=== PATIENT | female | born 1935 | race Caucasian/White ===

== ENCOUNTER 2017-01-14 14:41 | Emergency (ER) | payer MEDICARE, MEDICAID ==
[~2017-01-14] VITALS: Ht 157.5 cm; Wt 65.0 kg
[~2017-01-14 14:41] MED LIST: ACET325T45 PO; ADV25050 INH; ATOR40TA68 PO; COMBIG5 BOTH EYES; DIPH50VI12 IV; Digoxin PO; ENOX30DI2 SC; ERGO500014 PO; FLUO10CA17 PO; FURO-110 PO; HYDR-906 PO; LEVO100T87 PO; LORA0.5T PO; MAGN400O4 PO; METH10TA2 PO; METO-335 PO; PANT40TA4 PO; POTA20TA96 PO; RANI150C11 PO; TIOT18CA IH; TIOT18CA INH; Vancomycin Hcl XX; WARF1TAB47 PO; ZOF4I IV; [UNRECOGNIZED DRUG - CODE] IM; [UNRECOGNIZED DRUG - CODE] IRR; [UNRECOGNIZED DRUG - CODE] IV
[2017-01-14 14:43] VITALS: Ht 157.5 cm; Wt 65.0 kg
[2017-01-14] MEDS ORDERED: SOD CHLORIDE 0.9% 500 ML IV STA (15:03)
[2017-01-14] MEDS ORDERED: FAMOTIDINE 20 MG INJ IV STA (15:03)
[2017-01-14] MEDS ORDERED: ONDANSETRON 4 MG INJ IV STA (15:03)
[2017-01-14] MEDS ORDERED: morphine 4 MG/ML VIAL IV STA (15:49)
[2017-01-14 16:06] LABS: BASOPHILS % 0.3 % (0.0-2.0); EOSINOPHILS % 0.3 % (0.0-7.0); HEMATOCRIT 34.8 % (37.0-47.0); HEMOGLOBIN 11.1 g/dl (12.0-16.0); LYMPHOCYTES # 0.9 10^3/ul (0.8-2.9); LYMPHOCYTES % 8.6 % (15.0-51.0); MEAN CORPUSCULAR HEMOGLOBIN 30.4 pg (29.0-33.0); MEAN CORPUSCULAR HGB CONC 31.9 g/dl (32.0-37.0); MEAN CORPUSCULAR VOLUME 95.3 fl (82.0-101.0); MEAN PLATELET VOLUME 11.4 fl (7.4-10.4); MONOCYTE # 0.5 10^3/ul (0.3-0.9); MONOCYTES % 4.3 % (0.0-11.0); NEUTROPHIL # 9.1 10^3/ul (1.6-7.5); PLATELET COUNT 244 10^3/UL (140-415); RED BLOOD COUNT 3.65 10^6/ul (4.20-5.40); RED CELL DISTRIBUTION WIDTH 16.6 % (11.5-14.5); WHITE BLOOD COUNT 10.6 10^3/ul (4.8-10.8)
--- NOTE | 2017-01-14 16:17 | RADRPT ---
PROCEDURE: Chest 1 views. CLINICAL INDICATION: Shortness of breath. Abdominal pain. TECHNIQUE: AP views of the chest was obtained. COMPARISON: November 23, 2014 FINDINGS: The heart is large. The lung apices are partially obscured by the patient's overlying chin. Right-si ded dual chamber pacemaker has its leads over the heart. Central pulmonary vascular congestion and i nterstitial prominence is seen in both lungs. Perihilar infiltrates are identified in the left upper lobe. Right lower lung infiltrates, combined small to moderate pleural effusion identified. Retroca rdiac opacity is noted. The lungs are hypoinflated. Left-sided chest port has its tip in the expect ed location of the proximal superior vena cava. The osseous structures appear grossly intact. IMPRESSION: Cardiomegaly . Limited exam with the lung apices partially obscured by the patient's overlying chin. Repeat exam wi th the chin elevated can be considered. Central pulmonary vascular congestion and interstitial prominence in both lungs. Perihilar infiltrates in the left upper lobe. Right mid and lower lung infiltrates, combined with small to moderate pleural effusion. Retrocardiac opacity that may reflect left lower lobe atelectasis or infiltrate combined with small pleural effusion. RPTAT: AA .Richard Stone MD, Date Time Electronically viewed and signed by .Richard Stone MD, on 01/14/2017 16:16 .P/
[2017-01-14] MEDS ORDERED: AMIN30LI PO (16:22)
[2017-01-14] MEDS ORDERED: HYDR-906 PO (16:23)
[2017-01-14] MEDS ORDERED: LATA2.5D9 RIGHT EYE (16:25)
[2017-01-14] MEDS ORDERED: MONT10TA24 PO (16:25)
[2017-01-14] MEDS ORDERED: BRIM15DR2 BOTH EYES (16:25)
[2017-01-14] MEDS ORDERED: OLAN5TAB5 PO (16:26)
[2017-01-14] MEDS ORDERED: TEMA15CA6 PO (16:26)
[2017-01-14] MEDS ORDERED: IPRA3AMP INHALATION (16:27)
[2017-01-14] MEDS ORDERED: ALPR0.5T6 PO (16:27)
[2017-01-14] MEDS ORDERED: MULTI PO (16:31)
[2017-01-14] MEDS ORDERED: LEVO125T75 PO (16:31)
[2017-01-14] MEDS ORDERED: ATOR10TA65 PO (16:32)
[2017-01-14] MEDS ORDERED: TIOT18CA INHALATION (16:32)
[2017-01-14] MEDS ORDERED: ESCI5TAB PO (16:33)
[2017-01-14] MEDS ORDERED: DEXT15DR4 OP (16:34)
[2017-01-14] MEDS ORDERED: RIVA20TA PO (16:34)
[2017-01-14] MEDS ORDERED: DIGO125T6 PO (16:35)
--- NOTE | 2017-01-14 17:05 | RADRPT ---
PROCEDURE: CT abdomen and pelvis without contrast. CLINICAL INDICATION: Abdominal Pain TECHNIQUE: CT scan of the abdomen and pelvis without contrast was performed and is reconstructed a t 2.5 mm contiguous axial intervals from the dome of the diaphragm to the inferior pubic rami.. The patient was scanned without intravenous contrast. Sagittal and coronal reformatted images were obt ained from the axial source images. The calculated radiation dose measures 1168 mGy centimeters. The CTDI measures 21 mGy. Individualized dose optimization technique was used for the performance of this exam. This included 1. Automated exposure control. 2. Adjustment of the mA and / or kV according to the patient's size. 3. Use of iterative reconstructed technique. COMPARISON: None. FINDINGS: The lung bases are clear of any infiltrate or nodule. No effusion is seen. Calcified granulomas see n in the left lower lobe. Pacemaker wires are present in the heart. The liver is of normal size, contour and attenuation with no mass . There is mild to moderate intra and extrahepatic bile duct dilatation with stones present in the distal common bile duct. . Gallblad guzman is distended with stones. No splenic, adrenal or pancreatic abnormalities present. Kidneys are of normal size and contour. No hydronephrosis or masses seen. 7 mm nonobstructing ston e is present in the lower pole of the right kidney. Ureters are of normal course and caliber with no stone. No bladder mass or stone is present. Uterus is been removed. Noted is a 4.2 cm cystic mass of the left ovary.. There is no aneurysm. There are extensive vascular calcifications. No adenopathy is present. No bowel mass or obstruction is present. Patient is status post partial left hemicolectomy with H artmann's pouch and a lower pelvic colostomy. A few scattered diverticula are present. The appendix is normal. No phlegmon, ascites or pneumoperitoneum is visualized. Patient is status post left hip replacement. 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 Postsurgi rashi changes are seen in the left groin suggestive of vascular bypass. There is a chronic compression fracture of L2, L3 and L4. IMPRESSION: Intra and extrahepatic bile duct dilatation with distended gallbladder containing stones. Choledocho lithiasis. Consider ultrasound for further evaluation. 7 mm nonobstructing right renal calculus. Bilateral renal cysts. Post hysterectomy. 4.2 cm cystic mass left ovary. Correlation with ultrasound is suggested. Status post partial left hemicolectomy with left lower quadrant colostomy. Status post left total hip replacement. Multiple compression fractures lumbar spine. Diverticulosis. .Daniel Mack MD, Date Time Electronically viewed and signed by .Daniel Mack MD, on 01/14/2017 17:05 .A/
[2017-01-14 17:59] LABS: TROPONIN-I < 0.012 ng/ml (0.00-0.12)
[2017-01-14 18:00] LABS: ALANINE AMINOTRANSFERASE 321 IU/L (13-69); ALBUMIN/GLOBULIN RATIO 0.88; ALKALINE PHOSPHATASE 331 IU/L (42-121); ANION GAP 15 (8-16); ASPARTATE AMINO TRANSFERASE 430 IU/L (15-46); BILIRUBIN,INDIRECT 0.5 mg/dl (0-1.1); BILIRUBIN,TOTAL 0.8 mg/dl (0.2-1.3); BLOOD UREA NITROGEN 20 mg/dl (7-20); CALCIUM 9.3 mg/dl (8.4-10.2); CARBON DIOXIDE 27 mmol/L (21-31); CHLORIDE 104 mmol/L (97-110); CREATININE 0.93 mg/dl (0.44-1.00); GLUCOSE 161 mg/dl (70-220); POTASSIUM 4.4 mmol/L (3.5-5.1); SODIUM 142 mmol/L (135-144); TOTAL PROTEIN 8.5 g/dl (6.1-8.1)
--- NOTE | 2017-01-14 18:21 | RADRPT ---
PROCEDURE: US Abdomen (right upper quadrant). CLINICAL INDICATION: Right upper quadrant abdomen pain. TECHNIQUE: Multiple real-time longitudinal and transverse images of the right upper quadrant of th e abdomen were acquired utilizing a curved array transducer. Images were reviewed on a high-resoluti on PACS workstation. COMPARISON: None FINDINGS: The liver is normal in size and normal in echogenicity. There is no focal hepatic lesion. Color Doppler and pulsed Doppler sonography demonstrate normal a ntegrade flow in the portal vein. Gallstones are present in the gallbladder. There is no gallbladder wall thickening and there is no f luid around the gallbladder. The bile ducts are normal with the common bile duct measuring 4.3 mm in diameter. The visualized portions of the pancreas are unremarkable with obscuration of the tail of the pancrea s. No free fluid is present. The right kidney measures 11.5 x 3.9 x 6.5 cm. There is normal echogenicity of the right kidney. There is no perinephric fluid collection. No hydronephrosis, mass, or calculus is seen. IMPRESSION: 1. Gallstones in the gallbladder. No evidence of cholecystitis. 2. Otherwise unremarkable right upper quadrant abdomen ultrasound. RPTAT: QQ .Drew Calix MD, Date Time Electronically viewed and signed by .Drew Calix MD, on 01/14/2017 18:21 .R/
[2017-01-14] MEDS ORDERED: ACETAMINOPHEN 325 MG TAB PO PRN (19:00)
[2017-01-14] MEDS ORDERED: ONDANSETRON 4 MG INJ IV PRN (19:00)
--- NOTE | 2017-01-14 19:44 | ERD ---
ER Documentation Chief Complaint Chief Complaint Sent from clinic for eval abdominal pain HPI This is a 81-year-old female with a history of chronic skin ulcer, hypertension who presents to the emergency room for evaluation of abdominal pain. The patient has had abdominal pain for the past 2 days and localizes the abdominal pain to the right portion of the abdomen. She does state that she has mild nausea however no vomiting. She came to the emergency room today for evaluation of her symptoms. The patient describes her pain as an achy pain with mild radiation to her back at times. ROS All systems reviewed and are negative except as per history of present illness. Medications Home Meds Reported Medications Digoxin* (Lanoxin*) 0.125 Mg Tablet, 0.125 MG PO DAILY, TAB HOLD FOR APICAL PULSE<60 01/14/17 Dextran 70/Hypromellose (Artificial Tears Eye Drops) 15 Ml Drops, 1 DROP OP Q8, BOTTLE 01/14/17 Rivaroxaban* (Xarelto*) 20 Mg Tablet, 20 MG PO WITH DINNER, TAB 01/14/17 Escitalopram Oxalate* (Lexapro*) 5 Mg Tablet, 2.5 MG PO DAILY, #30 TAB 01/14/17 Atorvastatin Calcium (Atorvastatin Calcium) 10 Mg Tablet, 10 MG PO QHS, #30 TAB 01/14/17 Tiotropium Wilburn* (Spiriva*) 18 Mcg Cap.w.dev, 1 CAP INHALATION DAILY, #30 CAP 01/14/17 Multivitamins* (Theragran*) 1 Tab Tab, 1 TAB PO DAILY, TAB 01/14/17 Levothyroxine Sodium* (Levothyroxine Sodium*) 125 Mcg Tablet, 125 MCG PO BEFORE BREAKFAST, #30 TAB 01/14/17 Alprazolam* (Alprazolam*) 0.5 Mg Tablet, 0.5 MG PO Q12 Y for ANXIETY, TAB 01/14/17 Ipratropium-Albuterol (Ipratropium-Albuterol) 0.5-3 Mg/3 Ml Ampul.neb, 3 ML INHALATION Q6 Y for WHEEZING AND SOB, #30 VIAL 01/14/17 Olanzapine* (Zyprexa*) 5 Mg Tablet, 5 MG PO QHS, #30 TAB 01/14/17 Temazepam* (Restoril*) 15 Mg Capsule, 15 MG PO HS Y for INSOMNIA, CAP 01/14/17 Latanoprost (Xalatan) 2.5 Ml Drops, 1 DROP RIGHT EYE QHS, #1 BOTTLE 01/14/17 Montelukast Sodium* (Montelukast Sodium*) 10 Mg Tablet, 10 MG PO QHS, #30 TAB 01/14/17 Brimonidine Tartrate* (Alphagan P*) 0.1%-15 Ml Opht Drops, 1 DROP BOTH EYES Q8, #1 EA 01/14/17 Hydrocodone/Acetaminophen (Sagamore 5-325 Tablet) 1 Each Tablet, 1 EACH PO BID Y for PAIN, TAB 01/14/17 Amino Acids/Protein Hydrolys (PRO-STAT LIQUID) 30 Ml Liquid.pkt, 30 ML PO BID 01/14/17 Salmeterol Xinaf/Fluticasone* (Advair*) 250-50 Diskus Inhaler, 1 INH INH BID, INH 11/22/14 Acetaminophen* (Acetaminophen*) 325 Mg Tablet, 650 MG PO Q8 Y for PAIN AND OR ELEVATED TEMP, TAB 11/22/14 Discontinued Reported Medications Warfarin Sodium* (Coumadin*) 1 Mg Tablet, 1 MG PO DAILY, TAB 11/22/14 Tiotropium Wilburn* (Spiriva*) 18 Mcg Cap.w.dev, 1 INH IH DAILY, EA 11/22/14 Ranitidine Hcl (Ranitidine Hcl) 150 Mg Capsule, 150 MG PO BID, CAP 11/22/14 Ondansetron Hcl* (Zofran*) 2 Mg/Ml Soln, 4 MG IV Q6H Y for NAUSEA AND OR VOMITING, VIAL 11/22/14 Morphine Sulfate (Morphine Sulfate) 5 Mg/Ml Soln, 5 MG IM Q4 Y for PAIN LEVEL 8- 10, EA 11/22/14 Metoprolol Succinate* (Toprol XL*) 25 Mg Tab.sr.24h, 25 MG PO BID, TAB 11/22/14 Magnesium Hydroxide* (Milk Of Magnesia*) 400 Mg/5 Ml Oral.susp, 30 ML PO DAILY Y for CONSTIPATION, ML 11/22/14 Imipenem/Cilastatin Sodium (Primaxin 500 Mg Vial) 500 Mg/Vial Vial.port, 500 MG IV Q12 11/22/14 Hydrocodone Bit-Acetaminophen (Sagamore) 5-325 Mg Tablet, 1 TAB PO Q6 Y for PAIN, TAB 11/22/14 Diphenhydramine* Inj (Diphenhydramine* Inj) 50 Mg/Ml Vial, 25 MG IV Q12 Y for PRURITUS, VIAL 11/22/14 Acetic acid* (Acetic acid*) 1,000 Ml Irrig.soln, 1000 ML IRR DAILY, BOTTLE 11/22/14 Fluoxetine Hcl* (Fluoxetine Hcl*) 10 Mg Capsule, 30 MG PO DAILY, CAP 11/13/14 Potassium Chloride* (Potassium Chloride*) 20 Meq Tablet.er, 20 MEQ PO BID, TAB.SA 11/13/14 Lorazepam* (Lorazepam*) 0.5 Mg Tablet, 0.5 MG PO TID Y for ANXIETY, TAB 11/13/14 Levothyroxine Sodium* (Levothyroxine Sodium*) 100 Mcg Tablet, 100 MCG PO AC BREAKFAST, TAB 11/13/14 Furosemide* (Lasix*) 20 Mg Tablet, 20 MG PO DAILY, TAB 11/13/14 Ergocalciferol* (Drisdol* (Vitamin D2)) 50,000 Unit Capsule, 81080 UNIT PO ON SUNDAYS, CAP 11/13/14 Atorvastatin* (Atorvastatin*) 40 Mg Tablet, 40 MG PO HS, TAB 11/13/14 Methadone Hcl* (Methadone*) 10 Mg Tab, 50 MG PO DAILY, TAB 11/13/14 Discontinued Scripts Pantoprazole* (Pantoprazole*) 40 Mg Tabec, 40 MG PO DAILY@06 for 30 Days Prov:THEO PAYNE MD 05/30/15 Salmeterol Xinaf/Fluticasone* (Advair*) 1 Inh Inha, 1 INH INH BID for 30 Days Prov:THEO PAYNE MD 05/30/15 Tiotropium Wilburn* (Spiriva*) 1 Inh Inha, 1 INH INH QHS for 30 Days Prov:THEO PAYNE MD 05/30/15 [Digoxin] 0.25 MG TAB No Conflict Check, 0.25 MG PO DAILY@13, TAB Prov:THEO PAYNE MD 05/30/15 Enoxaparin Sodium* (Enoxaparin Sodium*) 30 Mg/0.3 Ml Soln, 30 MG SC DAILY for 14 Days Prov:THEO PAYNE MD 05/30/15 [Vancomycin Hcl] 1 EA EACH No Conflict Check, 1 EA XX NOTE for 10 Days, EACH Prov:THEO PAYNE MD 05/30/15 Brimonidine/Timolol* (Combigan*) 1 Drop Drops, 1 DROP BOTH EYES BID for 30 Days , BOTTLE Prov:THEO PAYNE MD 05/30/15 Ergocalciferol* (Drisdol* (Vitamin D2)) 50,000 Unit Cap, 18853 UNIT PO Mello@09 for 30 Days, CAP Prov:THEO PAYNE MD 05/30/15 Allergies Allergies: Coded Allergies: clindamycin (Verified Allergy, Mild, RASH, 09/29/13) ceftriaxone (Verified Allergy, Unknown, itch, 11/14/14) ciprofloxacin (Verified Allergy, Unknown, 09/29/13) hydromorphone HCl (Verified Allergy, Unknown, 09/29/13) levofloxacin (Verified Allergy, Unknown, 09/29/13) PMhx/Soc History of Surgery: Yes (colostomy) Anesthesia Reaction: No Hx Neurological Disorder: No Hx Respiratory Disorders: Yes (asthma, COPOD) Hx Cardiac Disorders: Yes (AFIB, HTN) Hx Psychiatric Problems: Yes (depression) Hx Miscellaneous Medical Probl: Yes (B LE CHRONIC STASIS ULCERS,R EYE GLAUCOMA, L THR, PACEMAKER) Hx Alcohol Use: No Hx Substance Use: No Hx Tobacco Use: No Smoking Status: Never smoker Physical Exam Vitals Vital Signs Date Time Temp Pulse Resp B/P Pulse Ox O2 Delivery O2 Flow Rate FiO2 01/14/17 17:48 60 18 132/67 98 Room Air 01/14/17 14:43 98.1 60 20 144/64 99 Physical Exam INITIAL VITAL SIGNS: Reviewed by me GENERAL: The patient is well developed and appropriate for usual state of health in no apparent distress HEENT: Pupils equal, round, and reactive to light. EOMI. There is no scleral icterus. NECK: C-spine is soft and supple, there is no meningismus. There is no cervical lymphadenopathy. LUNGS: Clear to auscultation bilaterally. There are no rales, wheezes or rhonchi. HEART: Regular rate and rhythm, no murmurs, clicks, rubs or gallops. ABDOMEN: Positive Cortés sign, otherwise soft, non-tender, non-distended. There are bowel sounds in all four quadrants. No rebound or guarding. EXTREMITIES: There is no peripheral cyanosis or edema. No focal swelling or erythema. NEUROLOGICAL: The patient moves all four extremities with 5/5 strength. Cranial nerves II - XII are intact. Normal gait. Alert and oriented SKIN: There is no apparent rash or petechiae. HEME/LYMPHATIC: There is no evidence of excessive bruising or lymphedema. PSYCHIATRIC: The patient does not appear anxious or depressed. Result Diagram: 01/14/17 1545 01/14/17 1710 Results 24 hrs Laboratory Tests Test 01/14/17 15:45 01/14/17 17:10 White Blood Count 10.610^3/ul Red Blood Count 3.6510^6/ul Hemoglobin 11.1g/dl Hematocrit 34.8% Mean Corpuscular Volume 95.3fl Mean Corpuscular Hemoglobin 30.4pg Mean Corpuscular Hemoglobin Concent 31.9g/dl Red Cell Distribution Width 16.6% Platelet Count 21148^3/UL Mean Platelet Volume 11.4fl Neutrophils % 86.0% Lymphocytes % 8.6% Monocytes % 4.3% Eosinophils % 0.3% Basophils % 0.3% Nucleated Red Blood Cells % 0.0/100WBC Neutrophils # 9.110^3/ul Lymphocytes # 0.910^3/ul Monocytes # 0.510^3/ul Eosinophils # 0.010^3/ul Basophils # 0.010^3/ul Nucleated Red Blood Cells # 0.010^3/ul Sodium Level 142mmol/L Potassium Level 4.4mmol/L Chloride Level 104mmol/L Carbon Dioxide Level 27mmol/L Anion Gap 15 Blood Urea Nitrogen 20mg/dl Creatinine 0.93mg/dl Glucose Level 161mg/dl Calcium Level 9.3mg/dl Total Bilirubin 0.8mg/dl Direct Bilirubin 0.30mg/dl Indirect Bilirubin 0.5mg/dl Aspartate Amino Transf (AST/SGOT) 430IU/L Alanine Aminotransferase (ALT/SGPT) 321IU/L Alkaline Phosphatase 331IU/L Troponin I < 0.012ng/ml Total Protein 8.5g/dl Albumin 4.0g/dl Globulin 4.50g/dl Albumin/Globulin Ratio 0.88 Lipase 751U/L Current Medications Medications (Trade) Dose Ordered Sig/Amanda Route PRN Reason Start Time Stop Time Status Last Admin Dose Admin Sodium Chloride (NS) 500 ml @ 500 mls/hr Q1H STAT IV 01/14/17 15:03 01/14/17 16:02 DC 01/14/17 15:52 Ondansetron HCl (Zofran Inj) 4 mg ONCE STAT IV 01/14/17 15:03 01/14/17 15:04 DC 01/14/17 15:52 Famotidine (Pepcid Iv) 20 mg ONCE STAT IV 01/14/17 15:03 01/14/17 15:04 DC 01/14/17 15:52 Morphine Sulfate (morphine) 4 mg ONCE STAT IV 01/14/17 15:49 01/14/17 15:50 DC 01/14/17 16:00 Ondansetron HCl (Zofran Inj) 4 mg BRIDGE ORDER PRN IV NAUSEA AND/OR VOMITING 01/14/17 19:00 01/15/17 18:59 Acetaminophen (Tylenol Tab) 650 mg ER BRIDGE PRN PO MILD PAIN/FEVER 01/14/17 19:00 01/15/17 18:59 Procedures/MDM Ultrasound gallbladder: 1. Gallstones in the gallbladder. No evidence of cholecystitis. 2. Otherwise unremarkable right upper quadrant abdomen ultrasound. CT abdomen pelvis without IV contrast:Intra and extrahepatic bile duct dilatation with distended gallbladder containing stones. Choledocholithiasis. Consider ultrasound for further evaluation. 7 mm nonobstructing right renal calculus. Bilateral renal cysts. Post hysterectomy. 4.2 cm cystic mass left ovary. Correlation with ultrasound is suggested. Status post partial left hemicolectomy with left lower quadrant colostomy. Status post left total hip replacement. Multiple compression fractures lumbar spine. Chest X-ray 1V Interpreted by me: Soft Tissue: No acute abnormalities Bones: No acute abnormalities Mediastinum/Cardiac Silhouette/Lungs: [No acute abnormalities] This 81-year-old female presents to the ER for evaluation of abdominal pain. She had pain in the right upper quadrant and a positive Cortés's on my examination. This patient did undergo a CT of the abdomen and pelvis which shows choledocholithiasis with a gallstone in the distal common bile duct. Stent was obtained which does not show choledocholithiasis however CAT scan does demonstrate this. This patient does have a transaminitis. I did call this patient's primary care physician, Dr. Pham, and spoke to Dr. Briceño. He recommended Dr. Kellie meléndez for gastroenterology. I did call Dr. Kellie perez and spoke to the on-call physician, Dr. manley who states he does not have a ERCP privileges, and to call Dr. echols. I have paged this physician and I have not heard back. Dr. Briceño also wanted Dr. Esteban for general surgery however I spoke to Dr. Esteban he states that he is out of town. Given the fact that this patient will not be able to obtain a gastroenterology consult and we do not have any beef lugger avionics integration engineer this patient will be transferred to a higher level of care to obtain an ERCP given the fact her CAT scan does show choledocholithiasis and she does have transaminitis. This patient will be signed out to our oncoming physician for further disposition. We will notify Dr. Trejo that this patient will be transferred. Critical Care: Excluding all billable procedures Time: 33 minutes Treatments/Evaluations: Close monitoring and treatment of unstable vital signs, cardiorespiratory, and neurologic status, while maintaining tight balance of fluid, respiratory, and cardiac interventions multiple consultations , repeated bedside reevaluation, lab work evaluation, CT and ultrasound interpretation. Departure Diagnosis: Primary Impression: Choledocholithiasis Additional Impressions: Abdominal pain Transaminitis Condition: PAULINA Anderson DO Jan 14, 2017 19:44
[2017-01-15] MEDS ORDERED: DIPHENHYDRAMINE 50 MG INJ IM ONE
[2017-01-15] MEDS ORDERED: HALOPERIDOL 5 MG INJ IM ONE
[2017-01-15 03:30] VITALS: BP 92/58; PULSE 60; RESP 18; TEMP 98.7
--- NOTE | 2017-01-15 04:04 | EN ---
Date/Time of Note Date/Time of Note DATE: 01/15/17 TIME: 04:02 ER Progress Note Observation Note: Time: 4hours Family Hx: No Hypertension Evaluation: Multiple exams showed improving symptoms and no evidence of clinical deterioration I discussed the patient with Dr. Campos from [facility], who was made aware of the lab, the treatment, the patient condition. She accepted the patient at 4 AM QUINCY BERMUDEZ MD Jan 15, 2017 04:04
== END 2017-01-15 04:15 | disposition short-term general hospital (02) ==
LOC: E/R 14:41
DX: K80.50 Calculus of bile duct without cholangitis or cholecystitis without obstruction (principal); R74.0 Nonspecific elevation of levels of transaminase and lactic acid dehydrogenase [LDH]; I10 Essential (primary) hypertension; J44.9 Chronic obstructive pulmonary disease, unspecified; Z79.01 Long term (current) use of anticoagulants; Z95.0 Presence of cardiac pacemaker
CPT/HCPCS: 71010; 74176; 76705; 80053; 83690; 84484; 85025; 93005; 96372; 96374; 96375; 99291; J1200; J1630; J2270; J2405; J7040